=== PATIENT | female | born 1990 | race Caucasian/White ===

== ENCOUNTER 2019-03-08 08:51 | Emergency (ER) | payer OTHER ==
[~2019-03-08] VITALS: Ht 167.6 cm; Wt 63.6 kg
[~2019-03-08 08:51] MED LIST: ABILIFY 10MG TA10 MG PO; ATIVAN0.5 MG PO; CITALOPRAM HYDR10 MG PO; MACRODANTIN50 MG/CA1 PO; MOTRIN 600600 MG/TAB PO; NORCO 325 MG-51 TAB PO; NORCO 325 MG-7.1 TAB PO; OXYBUTYNIN5 MG PO; PERCOCET 325 MG1 TA2 PO; PHENERGAN 25 TA25 MG PO; PHENERGAN25 MG RC; PRENATAL1 TA1 PO; SENOKOT S 50 MG1 TAB PO; TRAZODONE50 MG PO
[2019-03-08 08:54] VITALS: TEMP 97.4
[2019-03-08] MEDS ORDERED: NEURONTIN100 MG/CAP PO (09:06)
[2019-03-08] MEDS ORDERED: TRILEPTAL 150M150 MG PO (09:06)
[2019-03-08] MEDS ORDERED: PRISTIQ25 MG PO (09:07)
[2019-03-08] MEDS ORDERED: KLONOPIN 1MG1 MG PO (09:07)
[2019-03-08 09:43] LABS: BASO # 0.2 (0.0-0.2); EOS # 1.2 (0.0-0.7); EOS % 16.2 % (0-4.0); GRAN % 53.9 % (42.2-75.2); HEMATOCRIT 41.5 % (37.0-47.0); HEMOGLOBIN 14.8 g/dl (12.5-16.0); LYMPH # 1.6 (1.2-3.4); LYMPH % 21.5 % (20.0-51.0); MEAN CELL VOLUME 91 fl (80.0-100.0); MEAN CORPUSCULAR HEMOGLOBIN 33 pg (27.0-31.0); MEAN CORPUSCULAR HGB CONC 36 g/dl (33.0-37.0); MONO # 0.5 (0.1-0.6); MONO % 6.1 % (1.7-9.3); PLATELET COUNT 266 K/mm3 (130-400); RED BLOOD COUNT 4.56 M/mm3 (4.10-5.30); REDCELL DISTRIBUTION WIDTH-CV 11.5 % (11.5-14.5)
[2019-03-08 09:52] LABS: ALANINE AMINOTRANSFERASE 23 U/L (9-52); ALBUMIN 4.9 gm/dL (3.5-5.0); ALKALINE PHOSPHATASE 66 U/L (50-136); ANION GAP 7 mmol/L (7-16); AST,SGOT 23 U/L (15-37); BILIRUBIN,TOTAL 0.9 mg/dL (0.0-1.0); BLOOD UREA NITROGEN 11 mg/dL (7-17); CALCIUM 9.8 mg/dL (8.4-10.2); CARBON DIOXIDE 28 mmol/L (22-30); CHLORIDE 105 mmol/L (98-107); CREATININE, serum 0.76 (0.52-1.25); GLUCOSE 86 mg/dL (74-106); LIPASE 26 U/L (23-300); POTASSIUM 4.3 mmol/L (3.4-5.0); SODIUM 140 mmol/L (137-145); TOTAL PROTEIN 7.9 gm/dL (6.4-8.2)
[2019-03-08 10:04] LABS: TROPONIN-I < 0.012 ng/mL (0.000-0.035)
[2019-03-08 10:21] LABS: COLLECTION METHOD CLEAN CATCH
[2019-03-08] MEDS ORDERED: PRILOTC PO (10:23)
[2019-03-08 10:32] LABS: MUCOUS Present /lpf; PH 8 (5-8); SQUAMOUS EPITHELIAL 0-2 /hpf; URINE APPEARANCE Clear; URINE BACTERIA Occasional /hpf; URINE BILIRUBIN Negative (NEGATIVE); URINE BLOOD Negative (NEGATIVE); URINE COLOR Yellow; URINE GLUCOSE Negative (NEGATIVE); URINE KETONE Negative (NEGATIVE); URINE LEUKOCYTE ESTERASE Negative (NEGATIVE); URINE NITRATE Negative (NEGATIVE); URINE PROTEIN(semi-quant) Negative (NEGATIVE); URINE RBC 0-2 /hpf; URINE UROBILINOGEN Negative (NEGATIVE)
[2019-03-08 10:57] VITALS: BP 113/65; PULSE 67
== END 2019-03-08 10:03 | disposition home or self-care (01) ==
LOC: COL.ER 08:51
PROVIDERS: Physician Assistant
DX: R07.89 Other chest pain (principal); F17.210 Nicotine dependence, cigarettes, uncomplicated; Z88.5 Allergy status to narcotic agent; Z88.8 Allergy status to other drugs, medicaments and biological substances